=== PATIENT | female | born 1930 | race Caucasian/White ===

== ENCOUNTER 2016-06-22 08:28 | Day surgery (SDC) | payer MEDICARE, OTHER ==
--- NOTE | ~2016-06-22 | OP ---
Record Of Operation [facility] [address] [place]. [address] NAME: AMPARO KELSEY : 34 STATUS : [facility]#: [id number] AGE: 86 ADM/REG DATE : 06/22/16 MR#: [id number] REPORT SERV DATE: 06/23/16 DICTATED BY: ANGEL MCGRATH DATE: 06/22/16 REPORT STATUS : Draft TRANSCRIBED BY: MODL DATE: 06/22/16 DATE OF PROCEDURE: 06/22/2016 SURGEON: Angel Mcgrath M.D. SERVICE: Otolaryngology. PREOPERATIVE DIAGNOSIS: Possible giant-cell arteritis. POSTOPERATIVE DIAGNOSIS: Possible giant-cell arteritis. PROCEDURE PERFORMED: Left temporal artery biopsy. INDICATIONS FOR PROCEDURE: The patient is an 86-year-old, who presents with severe left headache, jaw claudication, and concern for giant-cell arteritis. Her laboratory workup did not show elevated inflammatory markers or liver-associated enzymes. However, based on symptomatology, she presents for surgical biopsy due to suspicion for giant-cell arteritis, which was responsive to steroid treatment. SPECIMENS: Left temporal artery. COMPLICATIONS: None. BLOOD LOSS: Minimal. RETAINED ITEMS: None. ANESTHESIA: Monitored anesthesia care. DESCRIPTION OF PROCEDURE: The patient was identified in preoperative holding, where informed consent was ensured. She was brought to the operating room and placed on the operative table in supine position. Monitored anesthesia care was induced without difficulty. A time out was performed to identify the patient and discuss the operative plan. The patient was then prepped and draped in standard sterile surgical fashion. Using Doppler monitor, the course of the superficial temporal artery on the left was traced. Its course was marked with a permanent marker. The temporal hairline was shaved for better access to the temporal artery. A planned incision was made within the hairline measuring approximately 4.5 cm. This incision was carried down to the subcutaneous tissue. Blunt dissection was then used to establish a plane underneath the fascia of the musculature. The superficial temporal artery was identified in its previously marked coarse. The proximal and distal ends were then delineated and undermined. Vicryl ties were placed on the proximal and distal ends, and 1.5 cm superficial temporal artery segment was isolated. Overlying fascia was freed. The segment of the superficial temporal artery was then excised from the specimen. Care was ensured to perform hemostasis with Vicryl suture ties. The wound was copiously irrigated. Deep Vicryls were placed with subsequent good resulting Record Of Operation [address] [address] NAME: AMPARO KELSEY : 34 STATUS : [facility] PAT#: [id number] AGE: 86 ADM/REG DATE : 06/22/16 MR#: [id number] REPORT SERV DATE: 06/23/16 DICTATED BY: ANGEL MCGRATH DATE: 06/22/16 REPORT STATUS : Draft TRANSCRIBED BY: MODL DATE: 06/22/16 approximation of the skin margin. Mastisol was applied and Steri-Strips were placed for superficial skin closure. The patient was turned over to anesthesia for awakening and transferred back in stable condition. DISPOSITION: Follow up with pathology, the patient will follow up in approximately seven days for wound care and assessment. /LUZ Angel Mcgrath MD / [id number] CC: MD Bowen Valencia NP
[~2016-06-22 08:28] MED LIST: ASABAYER PO; ASPERCREME/LIDOCAINE TD; B121000P SC; BIOFREEZE TD; BUP TD; BUSPAR5 PO; CALMOSEPTINE O2.5 OZ TOP; COZAAR100 MG PO; DOK100 MG PO; EXELON9.5T TOP; FLONASE NAS; IMOD PO; KDUR10 PO; L40 PO; LEXAPRO10 PO; LIPITOR10 PO; MIRALAX POWDER1 PKT PO; NAMENXR28 PO; NEUR800 PO; NORV10 PO; NYSTATPOW TOP; PRESERVISION A1 EAC1 PO; SENTAB PO; SINGULAIR1 PO; SYN88 PO; SYSTANE OPH; T PO; ULTRAM50 PO; [UNRECOGNIZED DRUG - OTHER] TD
== END 2016-06-22 19:57 | disposition home or self-care (01) ==
LOC: SDC 08:28
PROVIDERS: Otolaryngology
PROC: 03BT3ZX Excision of Left Temporal Artery, Percutaneous Approach, Diagnostic (ICD-10-PCS; principal; 2016-06-22 10:30)
DX: R51 Headache (principal); I10 Essential (primary) hypertension; E03.9 Hypothyroidism, unspecified; Z88.5 Allergy status to narcotic agent; M19.90 Unspecified osteoarthritis, unspecified site; Z88.8 Allergy status to other drugs, medicaments and biological substances; Z86.73 Personal history of transient ischemic attack (TIA), and cerebral infarction without residual deficits; F32.9 Major depressive disorder, single episode, unspecified; F41.9 Anxiety disorder, unspecified; Z79.82 Long term (current) use of aspirin; Z79.51 Long term (current) use of inhaled steroids; Z79.899 Other long term (current) drug therapy; Z98.890 Other specified postprocedural states
CPT/HCPCS: 80048; 85014; 85018; 88305; 88313; J0690; J2250; J2370; J3010